=== PATIENT | male | born 1980 | race Two or more races ===

== ENCOUNTER 2019-09-09 12:44 | Emergency (ER) | payer MEDICAID ==
[~2019-09-09] VITALS: Ht 183.5 cm; Wt 158.8 kg
[2019-09-09 12:42] VITALS: BP 117/73
--- NOTE | 2019-09-09 14:27 | Emergency Room Report ---
History of Present Illness General Chief Complaint: Upper Respiratory Illness Source: Patient Present Illness HPI 39-year-old male who is morbidly obese with no significant past medical history and daily use of marijuana here complaining of 1 week of cough and congestion shortness of breath. Denies any history of asthma, tobacco smoke or COPD. Is afebrile and oxygenation within normal limits. Denies recent travel. Reports that he has been staying at home for the past several weeks. Denies chest pain chest pain radiation. Denies abdominal pain, nausea vomiting diarrhea. Allergies: Coded Allergies: No Known Allergies (Unverified , 09/09/19) COVID-19 Screening Contact w/high risk pt: No Recent Travel to affected area: No Experienced COVID-19 symptoms?: Yes COVID-19 symptoms experienced: Shortness of Breath, Cough Patient History Past Medical History: see triage record Past Surgical History: none Pertinent Family History: none Immunizations: UTD Reviewed Nursing Documentation: PMH: Agreed; PSxH: Agreed Review of Systems All Other Systems: negative except mentioned in HPI Physical Exam Vital Signs Date Time Temp Pulse Resp B/P (MAP) Pulse Ox O2 Delivery O2 Flow Rate FiO2 09/09/19 12:35 98.6 09/09/19 12:35 75 20 117/73 (88) 95 Room Air Sp02 EP Interpretation: reviewed, normal General Appearance: no apparent distress, alert, GCS 15, non-toxic Head: normocephalic, atraumatic Eyes: bilateral eye normal inspection, bilateral eye PERRL ENT: hearing grossly normal, normal pharynx, no angioedema, normal voice Neck: full range of motion, supple/symm/no masses Respiratory: chest non-tender, lungs clear, normal breath sounds, no rhonchi, no wheezing, speaking full sentences Cardiovascular #1: regular rate, rhythm, no edema Gastrointestinal: non tender Rectal: deferred Genitourinary: no CVA tenderness Musculoskeletal: back normal Neurologic: alert, oriented Psychiatric: judgement/insight normal, memory normal, mood/affect normal, no suicidal/homicidal ideation Skin: no rash Lymphatic: no adenopathy Medical Decision Making PA Attestation All my diagnosis and treatment plans were reviewed ad discussed with my supervising physician Dr. Pires Diagnostic Impression: Primary Impression: URI (upper respiratory infection) ER Course 39-year-old male who is morbidly obese with no significant past medical history and daily use of marijuana here complaining of 1 week of cough and congestion shortness of breath. Denies any history of asthma, tobacco smoke or COPD. Is afebrile and oxygenation within normal limits. Denies recent travel. Reports that he has been staying at home for the past several weeks. Denies chest pain chest pain radiation. Denies abdominal pain, nausea vomiting diarrhea. Ddx considered but are not limited to: Coronavirus, bronchitis, PNA, URI viral, bacterial bronchitis Vital signs: are WNL, pt. is afebrile H&PE are most consistent with: Upper respiratory infection most likely secondary to coronavirus ORDERS: Chest x-ray, azithromycin, Phenergan DM, albuterol ED INTERVENTIONS: None required at this time. DISCHARGE: At this time pt. is stable for d/c to home. Will provide printed patient care instructions, and any necessary prescriptions. Care plan and follow up instructions have been discussed with the patient prior to discharge. Take medication as directed, follow-up with your primary doctor, you need to stay home for self quarantine due to Covid 19 precautions for 14 days. If any respiratory distress return to the emergency room Chest X-Ray Diagnostic Results Chest X-Ray Diagnostic Results : Chest X-Ray Ordered: Yes # of Views/Limited/Complete: 1 View Indication: Shortness of Breath EP Interpretation: Yes HELLEN Xray: Interpretation reviewed, by supervising MD, and agrees with findings. Interpretation: no consolidation, no effusion, no pneumothorax Impression: No acute disease Electronically Signed by: Malena Stern PA-C Last Vital Signs Date Time Temp Pulse Resp B/P (MAP) Pulse Ox O2 Delivery O2 Flow Rate FiO2 09/09/19 12:42 98.6 75 20 117/73 95 Room Air Disposition: HOME, SELF-CARE Condition: Stable Scripts D-Methorphan Hb/Prometh Hcl* (PROMETHAZINE-DM SYRUP*) 118 Ml Syrup 5 ML ORAL Q6H PRN for For Cough, #120 ML 0 Refills Prov: Malena Keith 09/09/19 Albuterol Sulfate (VENTOLIN HFA) 18 Gm Hfa.aer.ad 2 PUFFS INH EVERY 6 HOURS, #18 GM 0 Refills Prov: Malena Keith 09/09/19 Azithromycin* (ZITHROMAX*) 250 Mg Tablet 250 MG ORAL DAILY, #6 TAB 0 Refills Take two tables once daily for 1 day, then one tablet once daily for 4 days. Prov: Malena Keith 09/09/19 Referrals: NON PHYSICIAN (PCP) Patient Instructions: Upper Respiratory Infection, Adult Additional Instructions: Take medication as directed, follow-up with your primary doctor, you need to stay home for self quarantine due to Covid 19 precautions for 14 days Malena Keith Sep 09, 2019 14:27
[2019-09-09] MEDS ORDERED: VENTOLIN HFA18 GM INH (14:29)
[2019-09-09] MEDS ORDERED: ZITHROMAX250 MG ORAL (14:29)
[2019-09-09] MEDS ORDERED: PROMETHAZINE-D118 ML ORAL (14:29)
[2019-09-09 14:35] VITALS: BP 117/73
--- NOTE | 2019-09-09 15:31 | Diagnostic Imaging Report ---
Indication: Shortness of Technique: One view of the chest Comparison: none Findings: The heart is enlarged. Inspiration is suboptimal. No acute infiltrates, effusions, or congestion. Impression: Cardiomegaly. No acute process
== END 2019-09-09 14:35 | disposition home or self-care (01) ==
LOC: EDBD 12:44 → EMR 13:00
DX: J06.9 Acute upper respiratory infection, unspecified (principal); E66.01 Morbid (severe) obesity due to excess calories; R06.02 Shortness of breath; R05 Cough; F12.90 Cannabis use, unspecified, uncomplicated; Z68.42 Body mass index [BMI] 45.0-49.9, adult
CPT/HCPCS: 71045; Z7502; 99283